=== PATIENT | female | born 1940 | race Caucasian/White ===

== ENCOUNTER 2020-06-12 17:54 | Emergency (ER) | payer OTHER, SELFPAY ==
[2020-06-12 18:03] VITALS: BP 178/84; PULSE 88; RESP 24; TEMP 36.8; O2SAT 100; BMI 27.4
--- NOTE | 2020-06-12 19:17 | PC.NURSE ---
THIS NURSE TO BEDSIDE AFTER PATIENT REFUSED UPDRAFT FROM RESPIRATORY. EXPLAINED THE MEDS THE DOCTOR ORDER. PATIENT DOES NOT WANT THE MEDS ONLY WANTS AN INHALER AND TO GO HOME. SPOKE WITH DR MAHAN AND WILL ORDER INHALER AND DISCHARGE.
--- NOTE | 2020-06-12 19:22 | ED_ITS ---
HPI - SOB/Dyspnea General Chief Complaint: Dyspnea Stated Complaint: Sob Time Seen by Provider: 06/12/20 18:41 Source: patient Mode of arrival: ambulatory Limitations: no limitations History of Present Illness HPI Narrative: Patient is coming to the emergency room complaining of shortness of breath. Patient states that earlier today she was going shopping, it was very winded very call, she did not have a jacket or a mask. Patient states the cold exacerbated the shortness of breath. Patient usually uses 3 L of oxygen at home and was using her O2 while shopping as well. Patient states yesterday and this morning she was completely at baseline. Related Data Allergies Allergy/AdvReac Type Severity Reaction Status Date / Time No Known Allergies Allergy Verified 06/12/20 18:11 Review of Systems Review of Systems: Constitutional : No Weight loss, No Fever, No Chills, No Night Sweats, No Fatigue, No Malaise ENT/Mouth : No Hearing loss, No Ear Pain, No Nasal Congestion, No Sinus Pain, No Hoarseness, No sore throat, No Rhinorrhea, No Swallowing Difficulty Eyes: No Eye Pain, No Swelling, No Redness, No Foreign Body, No Discharge, No Vision Changes Cardiovascular : No Chest Pain, No SOB, No Dyspnea on Exertion, No Orthopnea, No Edema, No Palpitations Respiratory : Chronic Cough, No Sputum, chronic Wheezing, No Smoke Exposure, exacerbated from baseline Dyspnea Gastrointestinal : No Nausea, No Vomiting, No Diarrhea, No Constipation, No abdominal Pain, No Hematochezia, No Melena Genitourinary : no irregular bleeding, No Dysuria, No Urinary Frequency, No Hematuria, No Urinary Incontinence, No Urgency, No Flank Pain, No Urinary Flow Changes, No Hesitancy Musculoskeletal : No joint pain, No Myalgias, No Joint Swelling Skin : No Skin Lesions, No rash Neuro : No Weakness, No Numbness, No Paresthesias, No Loss of Consciousness, No Dizziness, No Headache Psych : No Anxiety/Panic, No Depression, No SI/HI/AH/VH, No Social Issues, Heme/Lymph: No Bruising, No Bleeding,No Lymphadenopathy Endocrine : No Polyuria, No Polydipsia, No Temperature Intolerance PMFSH Past Medical History Medical History COPD (chronic obstructive pulmonary disease) Social History Social History Advance Directives: No Advance Directives Information Provided: Yes Physical Exam Vital Signs: Vital Signs: Last Vital Signs Temp 98.3 F 06/12/20 18:03 Pulse 88 06/12/20 18:03 Resp 24 H 06/12/20 18:03 BP 178/84 H 06/12/20 18:03 Pulse Ox 100 06/12/20 18:03 Body Mass Index 27.4 Appearance: Alert. Oriented X3. No acute distress. Eyes: Pupils equal, round and reactive to light. ENT: Pharynx normal. Neck: Normal inspection. Neck supple. No lymph nodes noted. No crepitus CVS: Normal heart rate and rhythm. Pulses normal. Normal S1 and S2 Respiratory: No respiratory distress. Wheezing bilaterally, tight breath sounds, low to moderate air movement Abdomen: Soft and nontender. No rigidity. No distention. good BS x4 Skin: Skin warm and dry. Normal skin color. Normal skin turgor. Extremities: No lower extremity edema. No lower extremity edema. No Lacerations. No Rash Neuro: Oriented X 3. No motor deficit. No sensory deficit. Moving all extermities. No slurred speech. Course Course Course Narrative: Patient refused chest x-ray, labs, nebulization treatments, steroids, IV fluids. Patient states she only wants an inhaler and wants to be discharged. I discussed with the patient that she may have a COPD exacerbation, she says that she does not want antibiotics either. She has wants to go home with her inhaler and will not take steroids. Patient was given an albuterol pump here in the emergency room and then she l eft. I discussed with the patient the risks of leaving against medical advise including , patient states that she is aware of the risk but does not care and wants to go home. Discharge Plan Discharge Clinical Impression: COPD exacerbation Patient Disposition: Left Against Medical Advice
[2020-06-12] MEDS: Albuterol Sulfate 90 MCG 8 GM INHALER 2 PUFF INHALE (19:38)
[2020-06-12 19:42] VITALS: PULSE 86; O2SAT 94
--- NOTE | 2020-06-12 20:00 | PC.NURSE ---
PATIENT'S TANK IS EMPTY. DAUGHTER SENT HOME TO GET HER OTHER TANK AND WILL RETURN FOR DISCHARGE.
[2020-06-12 20:27] VITALS: RESP 22
== END 2020-06-12 21:20 | disposition left against medical advice (07) ==
PROVIDERS: Emergency Provider Emergency Medicine; PCP Physician Assistant Medical
DX: J44.1 Chronic obstructive pulmonary disease with (acute) exacerbation (principal); Z99.81 Dependence on supplemental oxygen
CPT/HCPCS: 94640; 96365; 96366; 96375; 99284

== ENCOUNTER 2021-03-31 18:14 | Emergency (ER) | payer OTHER, SELFPAY ==
--- NOTE | ~2021-03-31 | XR_ITS ---
EXAMINATION: XR ANKLE, LEFT CLINICAL INFORMATION: Fracture. COMPARISON: None TECHNIQUE: AP, lateral, and mortise views of the left ankle. FINDINGS: There is significant soft tissue edema around the ankle but more prominent in the lateral surface adjacent to the distal fibula. No evidence of acute fractures or malalignment. The ankle mortise and distal tibiofibular syndesmosis are maintained. No unexpected radiopaque foreign bodies. XR/XR ankle LT min 3V IMPRESSION: Significant soft tissue edema but without evidence of acute fractures or malalignment.
[2021-03-31 21:54] VITALS: BP 146/52; PULSE 86; RESP 20; TEMP 36.6; O2SAT 100; BMI 30.1
--- NOTE | 2021-03-31 23:41 | PC.NURSE ---
Pt. with swelling and ecchymosis to left anterior ankle. Positive CMS. palpable pedal pulse. no numbness or tingling. difficulty bearing weight. DEMARCUS wrap applied
--- NOTE | 2021-03-31 23:50 | ED.LOWEXIN ---
HPI - Extremity Injury (Lower) General Chief Complaint: Extremity Injury, Lower Stated Complaint: ankle pain Time Seen by Provider: 03/31/21 23:24 Source: patient Mode of arrival: wheelchair Limitations: no limitations History of Present Illness HPI Narrative: patient comes to the emergency room complaining of right ankle pain. Patient states that she fell out of her recliner and sprain her ankle. Patient denies hitting her head or loss of consciousness. Related Data Previous Rx's Medication Instructions Recorded acetaminophen 500 mg tablet 500 mg PO QID PRN #20 tab 03/31/21 ibuprofen 600 mg tablet 600 mg PO Q6H PRN #14 tab 03/31/21 Allergies Allergy/AdvReac Type Severity Reaction Status Date / Time No Known Allergies Allergy Verified 06/12/20 18:11 Review of Systems Review of Systems: Constitutional : No Weight loss, No Fever, No Chills, No Night Sweats, No Fatigue, No Malaise ENT/Mouth : No Hearing loss, No Ear Pain, No Nasal Congestion, No Sinus Pain, No Hoarseness, No sore throat, No Rhinorrhea, No Swallowing Difficulty Eyes: No Eye Pain, No Swelling, No Redness, No Foreign Body, No Discharge, No Vision Changes Cardiovascular : No Chest Pain, No SOB, No Dyspnea on Exertion, No Orthopnea, No Edema, No Palpitations Respiratory : No Cough, No Sputum, No Wheezing, No Smoke Exposure, No Dyspnea Gastrointestinal : No Nausea, No Vomiting, No Diarrhea, No Constipation, No abdominal Pain, No Hematochezia, No Melena Genitourinary : no irregular bleeding, No Dysuria, No Urinary Frequency, No Hematuria, No Urinary Incontinence, No Urgency, No Flank Pain, No Urinary Flow Changes, No Hesitancy Musculoskeletal : Complaining of right ankle pain, No Myalgias, No Joint Swelling Skin : No Skin Lesions, No rash Neuro : No Weakness, No Numbness, No Paresthesias, No Loss of Consciousness, No Dizziness, No Headache Psych : No Anxiety/Panic, No Depression, No SI/HI/AH/VH, No Social Issues, Heme/Lymph: No Bruising, No Bleeding,No Lymphadenopathy Endocrine : No Polyuria, No Polydipsia, No Temperature Intolerance PMFSH Past Medical History Medical History COPD (chronic obstructive pulmonary disease) Social History Social History Advance Directives: No Advance Directives Information Provided: No Physical Exam Vital Signs: Vital Signs: Last Vital Signs Temp 97.9 F 03/31/21 21:54 Pulse 86 03/31/21 21:54 Resp 20 03/31/21 21:54 BP 146/52 H 03/31/21 21:54 Pulse Ox 100 03/31/21 21:54 Oxygen Flow Rate 3 03/31/21 21:54 BMI result Body Mass Index 30.1 Course Course Course Narrative: I discussed the x-ray findings with the patient. there are no acute findings. Patient states that most of the time she uses her wheelchair to get around her house. Patient states that she has enough services at home. MDM - Extremity Injury (Lower) Imaging Data ankle x-ray: Radiologist's impression: FINDINGS: There is significant soft tissue edema around the ankle but more prominent in the lateral surface adjacent to the distal fibula. No evidence of acute fractures or malalignment. The ankle mortise and distal tibiofibular syndesmosis are maintained. No unexpected radiopaque foreign bodies. XR/XR ankle LT min 3V IMPRESSION: Significant soft tissue edema but without evidence of acute fractures or malalignment. Discharge Plan Discharge Clinical Impression: Ankle sprain Qualifiers: Encounter type: initial encounter Laterality: right Patient Disposition: Home, Self-Care Instructions: Ankle Sprain (ED) Additional Instructions: Please follow-up with your primary care physician tomorrow. If you have any worsening or new symptoms, please return to the emergency room or call 911 Prescriptions: New ibuprofen 600 mg tablet 600 mg PO Q6H PRN (Reason: pain) Qty: 14 RF: 0 acetaminophen 500 mg tablet 500 mg PO QID PRN (Reason: fever or pain) Qty: 20 RF: 0 Referrals: Kristian Blue PA-C [Physician [employer]] - 1 week
[2021-04-01] MEDS: Ibuprofen 600 MG TABLET PO (00:09)
[2021-04-01 00:13] VITALS: BP 148/83; PULSE 80; RESP 18; O2SAT 98
== END 2021-04-01 00:18 | disposition home or self-care (01) ==
PROVIDERS: Emergency Provider Emergency Medicine
DX: S93.401A Sprain of unspecified ligament of right ankle, initial encounter (principal); W07.XXXA Fall from chair, initial encounter; Y93.89 Activity, other specified; Y92.019 Unspecified place in single-family (private) house as the place of occurrence of the external cause; Y99.9 Unspecified external cause status
CPT/HCPCS: 73610; 99283